=== PATIENT | male | born 2000 | race Caucasian/White ===

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

== ENCOUNTER → 2021-09-02 | Outpatient (CLI) | payer OTHER, SELFPAY ==
--- NOTE | 2021-09-02 08:22 | MRI_ITS ---
STUDY: MRI RIGHT KNEE REASON FOR EXAM: Male, 20 years old. Medial knee pain. Knee instability. Basketball injury. TECHNIQUE: Standardized fat and water weighted pulse sequences were obtained in all 3 orthogonal planes. COMPARISON: None. FINDINGS: Intermediate signal intensity posterior and anterior horns seen on the inversion recovery imaging consistent with normal vascularity of the meniscus. No evidence of meniscal tear. Normal hyaline cartilage of the medial femorotibial compartment. Normal medial femoral condyle and tibial plateau. There is a low signal lesion seen in the proximal tibial metaphysis medially 5 x 3 mm most consistent with bone island. Normal medial collateral ligamentous complex (MCL). Normal distal semimembranosus, gracilis and semitendinosus tendons. Normal lateral meniscus. Normal hyaline cartilage of the lateral femorotibial compartment. Normal lateral femoral condyle and tibial plateau. Normal proximal tibiofibular articulation. Normal lateral collateral (fibular) ligament. Normal popliteus tendon. Normal biceps femoris tendon. Normal anterior cruciate ligament (ACL). Normal posterior cruciate ligament (PCL). Normal congruent patellofemoral articulation. Normal hyaline cartilage of the patellofemoral compartment. Normal medial and lateral patellar retinaculum. Normal quadriceps tendon. Normal patellar tendon. Adjacent to the distal patellar insertion there is a small amount of fluid visualized consistent with mild tenosynovitis. Normal Hoffa''s fat pad. Minimal suprapatellar joint effusion. Small joint effusion adjacent to the lateral femoral condyle. The soft tissues are unremarkable. The otherwise visualized osseous structures are unremarkable. MRI/Lower Ext Joint Only (Routine) IMPRESSION: Increased signal posterior and anterior horns medial meniscus consistent with normal vascularity of the meniscus given patient''s age of 20 years. Minimal suprapatellar joint effusion. Small joint effusion adjacent to lateral femoral condyle. Small amount of fluid adjacent to the patellar tendon at its insertion consistent with mild tenosynovitis. Electronically Signed: Anthony Tilley MD, YUE at 9:56 EDT Reading Location ID and State: [facility] / [place] Tel , Service support ,
== END | disposition home or self-care (01) ==
PROVIDERS: PCP Family Medicine; Referring Provider Physician Assistant; Visit Provider Physician Assistant
DX: S89.91XA Unspecified injury of right lower leg, initial encounter (principal); M23.90 Unspecified internal derangement of unspecified knee
CPT/HCPCS: 73721